=== PATIENT | male | born 1955 | race Caucasian/White ===

== ENCOUNTER 2018-10-16 11:40 | Day surgery (SDC) | payer OTHER ==
[2018-10-15 16:43] VITALS: BMI 28.3
--- NOTE | 2018-10-16 11:17 | HP ---
Satellite [facility] - Chief Complaint Chief Complaint: right index finger mass - Past Medical History Allergies/Adverse Reactions: Allergies Allergy/AdvReac Type Severity Reaction Status Date / Time No Known Allergies Allergy Verified 10/15/18 16:38 - Current Medications Current Medications: Home Medications Medication Instructions Recorded Aspirin [ASA -] 81 mg PO DAILY 10/15/18 Rosuvastatin Calcium [Crestor] 10 mg PO DAILY 10/15/18 Oxycodone HCl/Acetaminophen 1 tab PO Q6H #20 tablet MDD 4 10/16/18 [Percocet 5-325 mg Tablet] Satellite Physical Exam - Physical Examination General Appearance: Well Nourished, Well Developed, Alert & Oriented x3 ENT: Clear Lung: Normal air movement Heart: Regular rate & rhythm Extremities: Other (right index finger- + mass, nvi) Neurological: Intact, Alert, Oriented Satellite Impression/Plan - Impression/Plan Impression: right index finger mass Operative Procedure: right index finger mass excision Date to be Performed: 10/16/18
[~2018-10-16 11:40] MED LIST: LACTATED RINGERS SOLUTION 1,000 ML IV SCH; ONDANSETRON 4 MG/2 ML VIAL IVPUSH PRN
[2018-10-16] MEDS ORDERED: LIDOCAINE HCL 1%, 10 MG/ML (20ML VIAL) ONE (13:06)
[2018-10-16] MEDS ORDERED: BUPIVACAINE HCL/PF 0.5% (5MG/ML) 10 ML VIAL ONE (13:07)
[2018-10-16] MEDS ORDERED: MIDAZOLAM HCL 2 MG/2 ML SINGLE DOSE VIAL ONE (13:21)
[2018-10-16] MEDS ORDERED: PROPOFOL 20 ML ONE (13:21)
[2018-10-16] MEDS ORDERED: ceFAZolin 2 GRAM PREMIX BAG IVPB ONE (13:34)
[2018-10-16] MEDS ORDERED: LIDOCAINE HCL 1%, 10 MG/ML (20ML VIAL) NR ONE ×2 (13:53)
[2018-10-16] MEDS ORDERED: BUPIVACAINE HCL/PF (5 MG/ML) 30 ML VIAL IJ ONE (13:55)
--- NOTE | 2018-10-16 14:13 | OP ---
Operative Note - Note: Operative Date: 10/16/18 Pre-Operative Diagnosis: right index finger mass Operation: excision mass right index finger Findings: possible intermediate infection, walled off abscess Post-Operative Diagnosis: Same as Pre-op Surgeon: Loki Staples Anesthesiologist/STOCK DRIER TENDER: Marline Finnegan Anesthesia: Local, MAC Specimens Removed: mass and culture sticks x 2 right index finger Estimated Blood Loss (mls): 0 Drains, Volume Out (mls): 0 Blood Volume Replaced (mls): 0 Fluid Volume Replaced (mls): 700 Operative Report Dictated: Yes
--- NOTE | 2018-10-16 14:55 | OP ---
DATE OF OPERATION: 10/16/2018 PREOPERATIVE DIAGNOSIS: Mass, right index finger. 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 PROCEDURE: Excision mass, right index finger. SURGEON: Loki Cooper MD ASSISTANTS: None. ANESTHESIOLOGIST: Marline Finnegan MD ANESTHESIA: MAC anesthesia, local injection of 10 mL of 0.5% Marcaine with 1% lidocaine mixed. DRAINS: None. COMPLICATIONS: None. SPECIMEN: Mass, right index finger, and 2 culture sticks. BLOOD LOSS: None. BLOOD GIVEN: None. FLUID REPLACEMENT: 500 mL. INDICATIONS: This patient is a 63-year-old male who works a lot with his hands who has a preoperative diagnosis of a mass on the volar aspect of his right index finger, middle phalanx. After understanding the potential risks, complications, alternatives, benefits of the surgery versus non-surgical treatment, the patient elected to undergo this procedure. DESCRIPTION OF PROCEDURE: The patient was brought to the operating room, peripheral IV placed, IV sedation given. IV Ancef 2 g was given. MAC anesthesia was induced. Right upper extremity was prepped and draped in sterile fashion, elevated, exsanguinated with an Esmarch bandage. The tourniquet inflated to 250 mmHg. An oblique incision was marked out with a marking pen over this mass on the volar aspect of the right index finger, middle phalanx, and 10 mL of 0.5% Marcaine with 1% lidocaine mix was injected in and around the surgical incision as well as a metacarpal head block. A No. 15 scalpel blade was utilized cut down through the skin. A 3.8 loupe magnification view was used throughout this case. Once I cut through the skin, a yellowing chronic pus-like fluid, which was very thick and looked like it had been there for quite some time, was expressed from the wound. Two culture sticks were sent off. Next, I did deeper dissection around this, what looked to be a well-encapsulated chronic infection or foreign body inclusion cyst. I was able to circumferentially dissect with a No. 15 scalpel blade and excise this encapsulated abscess in its entirety, passed off the field. The area was copiously irrigated and washed out. I then inspected the area and did not see or feel any abnormal tissue, even with the loupe magnification. The area was irrigated and washed out again, and 4-0 undyed Vicryl was used to close the deep dermal layer. Final skin reapproximation was done with single interrupted and horizontal mattress 3-0 nylon sutures. The area was then washed and dried and covered with Xeroform, 4x4 gauze, fluffs between the fingers, Webril and Coban. Tourniquet was taken down after a total tourniquet time of 18 minutes. There were no complications during the case. The patient tolerated the procedure well and was brought to the ambulatory recovery room in stable condition. LOKI COOPER M.D. [id number]
[2018-10-16 15:04] VITALS: PULSE 63; TEMP 98.4
[2018-10-16 17:38] VITALS: BP 124/57
--- NOTE | 2018-10-21 15:06 | PATH ---
Surgical Pathology Report Patient Name: BORIS KOCH [facility]. Rec. #: [id number] /Age/Gender: 1955 (Age: 63) / M Account: [id number] Location: [facility] SURGICAL Taken: 10/16/2018 Received: 10/18/2018 Reported: 10/21/2018 Physicians: Loki Staples M.D. Specimen(s) Received MASS OF RIGHT INDEX FINGER Clinical History Mass right index finger Final Diagnosis INDEX FINGER, MASS, RIGHT, EXCISION: RUPTURED AND INFLAMED EPIDERMAL INCLUSION CYST. Electronically Signed Eliza Soares M.D. Gross Description Received in formalin labeled "mass right index finger," are 2 snyder portions of soft tissue measuring 0.9 x 0.5 x 0.1 cm and 0.9 x 0.6 x 0.2 cm. The larger portion is bisected and the specimen is entirely submitted in one cassette. 10/18/2018 saudi10/18/2018
== END 2018-10-16 15:50 | disposition home or self-care (01) ==
LOC: JASU-SURG 11:40
PROVIDERS: ATTEND Orthopaedic Surgery
PROC: 0JBJ0ZZ Excision of Right Hand Subcutaneous Tissue and Fascia, Open Approach (ICD-10-PCS; principal; 2018-10-16 13:00)
DX: L72.0 Epidermal cyst (principal)
CPT/HCPCS: 87070; 87205; 88304-TC; 94760